=== PATIENT | male | born 1990 | race African-American/Black ===

== ENCOUNTER 2017-09-12 22:57 | Emergency (ER) | payer SELFPAY | END 2017-09-13 00:46 | disposition home or self-care (01) | LOC: D.ER 22:57 | DX: S99.921A Unspecified injury of right foot, initial encounter (principal); X50.1XXA Overexertion from prolonged static or awkward postures, initial encounter; Y93.89 Activity, other specified; Y92.019 Unspecified place in single-family (private) house as the place of occurrence of the external cause; M25.474 Effusion, right foot; F17.200 Nicotine dependence, unspecified, uncomplicated ==